=== PATIENT | female | born 1990 | race Caucasian/White ===

== ENCOUNTER 2018-12-30 14:43 | Emergency (ER) | payer SELFPAY ==
--- NOTE | 2018-12-30 15:40 | ER Document Report ---
ED Medical Screen (RME) - General Chief Complaint: Seizure Stated Complaint: SEIZURE Time Seen by Provider: 12/30/18 15:34 Mode of Arrival: Ambulatory Information source: Patient Notes: 28-year-old female presented to ED for complaint of a seizure last night. She states she has had 5 seizures in the last year and has not been to a primary doctor since she does not have insurance. She does have a history of seizures but the last seizure before this was about 3 years ago before the last 5. She states in [place] she was seen by her neurologist and had a EEGs and all the testing but they never did find anything. They did put her on medication and [place] but she did not take it because of the way it made her feel. She states she did not wet herself but her whole left side of her body was numb and she bit her tongue like she always does when she has a seizure. She has not had a menstrual cycle since June I have greeted and performed a rapid initial assessment of this patient. A comprehensive ED assessment and evaluation of the patient, analysis of test results and completion of medical decision making process will be conducted by an additional ED providers. Physical Exam - Vital signs Vitals: Temp Pulse Resp BP Pulse Ox 98.9 F 69 18 139/80 H 97 12/30/18 15:05 12/30/18 15:05 12/30/18 15:05 12/30/18 15:05 12/30/18 15:05 Course - Vital Signs Vital signs: Temp Pulse Resp BP Pulse Ox 98.9 F 69 18 139/80 H 97 12/30/18 15:05 12/30/18 15:05 12/30/18 15:05 12/30/18 15:05 12/30/18 15:05
[2018-12-30 16:50] LABS: ABSOLUTE BASOPHILS # (AUTO) 0.1 10^3/uL (0.0-0.2); ABSOLUTE EOSINOPHILS # (AUTO) 0.1 10^3/uL (0.0-0.6); ABSOLUTE LYMPHOCYTES (AUTO) 1.7 10^3/uL (0.5-4.7); ABSOLUTE MONOCYTES (AUTO) 0.6 10^3/uL (0.1-1.4); ABSOLUTE NEUT (AUTO) 5.4 10^3/uL (1.7-8.2); BASOPHILS % (AUTO) 0.7 % (0-2); EOSINOPHILS % (AUTO) 1.3 % (0-6); HEMATOCRIT 38.8 % (36.0-47.0); HEMOGLOBIN 13.3 g/dL (12.0-15.5); LYMPHOCYTES % (AUTO) 21.9 % (13-45); MEAN CORPUSCULAR HGB CONC 34.2 g/dL (32.0-36.0); MEAN CORPUSCULAR VOLUME 91 fl (80-97); PLATELET COUNT 264 10^3/uL (150-450); RED BLOOD COUNT 4.28 10^6/uL (3.72-5.28); RED CELL DISTRIBUTION WIDTH 12.9 % (11.5-14.0); SEGMENTED NEUTROPHILS % (AUTO) 68.1 % (42-78); TOTAL CELLS COUNTED % (AUTO) 100 %; WHITE BLOOD COUNT 7.9 10^3/uL (4.0-10.5)
[2018-12-30 16:58] LABS: APPEARANCE,URINE SLIGHTLY-CLOUDY; BILIRUBIN,URINE NEGATIVE (NEGATIVE); COLOR,URINE YELLOW; GLUCOSE, URINE NEGATIVE (NEGATIVE); KETONES,URINE NEGATIVE (NEGATIVE); PROTEIN,URINE NEGATIVE (NEGATIVE); URINE SPECIFIC GRAVITY 1.009; UROBILINOGEN,URINE NEGATIVE mg/dL (<2.0)
[2018-12-30 17:13] LABS: URINE AMPHETAMINES SCREEN NEGATIVE; URINE BARBITURATES SCREEN NEGATIVE; URINE BENZODIAZEPINES SCREEN NEGATIVE; URINE COCAINE SCREEN NEGATIVE; URINE MARIJUANA (THC) SCREEN NEGATIVE; URINE METHADONE SCREEN NEGATIVE; URINE PHENCYCLIDINE SCREEN NEGATIVE
[2018-12-30 17:16] LABS: ALBUMIN 4.3 g/dL (3.5-5.0); ALKALINE PHOSPHATASE 57 U/L (38-126); ANION GAP 11 (5-19); ASPARTATE AMINO TRANSFERASE 24 U/L (14-36); BILIRUBIN,DIRECT 0.1 mg/dL (0.0-0.4); BILIRUBIN,TOTAL 0.6 mg/dL (0.2-1.3); BLOOD UREA NITROGEN 11 mg/dL (7-20); CALCIUM 9.7 mg/dL (8.4-10.2); CARBON DIOXIDE 24 mmol/L (22-30); CHLORIDE 102 mmol/L (98-107); GLUCOSE 79 mg/dL (75-110); POTASSIUM 4.8 mmol/L (3.6-5.0); TOTAL PROTEIN 7.5 g/dL (6.3-8.2)
--- NOTE | 2018-12-30 19:42 | ER Document Report ---
ED General - General Chief Complaint: Probable Seizure Stated Complaint: SEIZURE Time Seen by Provider: 12/30/18 15:34 Mode of Arrival: Ambulatory Information source: Patient, [facility] Records Notes: 28-year-old female with a reported history of seizures presents after a seizure that occurred at home. This was an unwitnessed seizure and patient states that occurred in her sleep. When asked how she knew she had a fever she states that she bit her tongue and feels achy all over like her typical of seizure. She denies any recent illness, alcohol use, drug use. She is not currently on any medication for seizures. She states her last seizure was approximately 5 to 6 months ago. She states in [place] she underwent extensive EEG testing and they "found nothing". She has never been on any seizure medication. She states that her seizures only happen at night. She has no current complaints at this time except first that she feels tired. TRAVEL OUTSIDE OF THE [place] IN LAST 30 DAYS: No - HPI Onset: Just prior to arrival Onset/Duration: Sudden Quality of pain: No pain Severity: None Pain Level: Denies Associated symptoms: Body/muscle aches. denies: Chest pain, Diarrhea, Fever, Nausea, Vomiting, Shortness of breath Exacerbated by: Denies Relieved by: Denies Similar symptoms previously: Yes Recently seen / treated by doctor: No - Related Data Allergies/Adverse Reactions: No Known Allergies Allergy (Verified 12/30/18 16:19) Past Medical History - General Information source: Patient - Social History Smoking Status: Never Smoker Frequency of alcohol use: Occasional Drug Abuse: None Lives with: Family Family History: Reviewed & Not Pertinent Patient has suicidal ideation: No Patient has homicidal ideation: No Neurological Medical History: Reports: Hx Seizures Review of Systems - Review of Systems Notes: REVIEW OF SYSTEMS: CONSTITUTIONAL : Denies fever, chills, or sweats. Denies recent illness. Denies weight loss, recent hospitalizations. EENT: Denies visual changes, eye pain. Denies sore throat, oral lesions, difficulty swallowing. CARDIOVASCULAR: Denies chest pain. Denies palpitations. Denies lower extremity edema. RESPIRATORY: Denies cough. Denies shortness of breath, wheezing. GASTROINTESTINAL: Denies abdominal pain or distention. Denies nausea, vomiting, or diarrhea. Denies blood in vomitus, stools, or per rectum. Denies black, tarry stools. Denies constipation. GENITOURINARY: Denies difficulty urinating, painful urination, frequency, blood in urine, or vaginal discharge. MUSCULOSKELETAL: Denies back or neck pain or stiffness. Denies joint pain or swelling. SKIN: Denies rash, lesions or sores. HEMATOLOGIC : Denies easy bruising or bleeding. LYMPHATIC: Denies swollen glands. NEUROLOGICAL: Denies confusion or altered mental status. Denies loss of consciousness. Denies dizziness or lightheadedness. Denies headache. Denies weakness or paralysis. Denies problems difficulty with ambulation, slurred speech. Denies sensory loss, numbness, or tingling. + seizures. PSYCHIATRIC: Denies anxiety or stress. Denies depression, suicidal ideation, or homicidal ideation. Denies visual or auditory hallucinations. Physical Exam - Vital signs Vitals: Temp Pulse Resp BP Pulse Ox 98.9 F 69 18 139/80 H 97 12/30/18 15:05 12/30/18 15:05 12/30/18 15:05 12/30/18 15:05 12/30/18 15:05 - Notes Notes: PHYSICAL EXAMINATION: GENERAL: Well-appearing, well-nourished and in no acute distress. HEAD: Atraumatic, normocephalic. EYES: Pupils equal round and reactive to light, extraocular movements intact, conjunctiva are normal. ENT: Nares patent, oropharynx clear without exudates. Moist mucous membranes. NECK: Normal range of motion, supple without lymphadenopathy LUNGS: Breath sounds clear to auscultation bilaterally and equal. No wheezes rales or rhonchi. HEART: Regular rate and rhythm without murmurs ABDOMEN: Soft, nontender, nondistended abdomen. No guarding, no rebound. No masses appreciated. Female : deferred Musculoskeletal: Normal range of motion, no pitting or edema. No cyanosis. NEUROLOGICAL: Cranial nerves grossly intact. Normal speech, normal gait. Normal sensory, motor exams PSYCH: Normal mood, normal affect. SKIN: Warm, Dry, normal turgor, no rashes or lesions noted. Course - Re-evaluation Re-evalutation: Laboratory 12/30/18 12/30/18 12/30/18 16:30 16:30 16:30 WBC 7.9 RBC 4.28 Hgb 13.3 Hct 38.8 MCV 91 MCH 31.0 MCHC 34.2 RDW 12.9 Plt Count 264 Lymph % (Auto) 21.9 [place] % (Auto) 8.0 Eos % (Auto) 1.3 Baso % (Auto) 0.7 Absolute Neuts (auto) 5.4 Absolute Lymphs (auto) 1.7 Absolute Monos (auto) 0.6 Absolute Eos (auto) 0.1 Absolute Basos (auto) 0.1 Seg Neutrophils % 68.1 Sodium 136.9 L Potassium 4.8 Chloride 102 Carbon Dioxide 24 Anion Gap 11 BUN 11 Creatinine 0.76 Est GFR ( Amer) > 60 Est GFR (MDRD) Non-Af > 60 Glucose 79 Calcium 9.7 Total Bilirubin 0.6 Direct Bilirubin 0.1 Neonat Total Bilirubin Not Reportable Neonat Direct Bilirubin Not Reportable Neonat Indirect Bili Not Reportable AST 24 ALT 21 Alkaline Phosphatase 57 Total Protein 7.5 Albumin 4.3 Serum HCG, Qual NEGATIVE Urine Color Urine Appearance Urine pH Ur Specific [place] Urine Protein Urine Glucose (UA) Urine Ketones Urine Blood Urine Nitrite (Reflex) Urine Bilirubin Urine Urobilinogen Leukocyte Esterase Rfl Urine RBC (Auto) Urine Bacteria (Auto) Urine WBC (Reflex) Squamous Epi Cells Auto Urine Mucus (Auto) Urine Ascorbic Acid Urine Opiates Screen Urine Methadone Screen Ur Barbiturates Screen Ur Phencyclidine Scrn Ur Amphetamines Screen U Benzodiazepines Scrn Urine Cocaine Screen U Marijuana (THC) Screen 12/30/18 12/30/18 16:30 16:30 WBC RBC Hgb Hct MCV MCH MCHC RDW Plt Count Lymph % (Auto) [place] % (Auto) Eos % (Auto) Baso % (Auto) Absolute Neuts (auto) Absolute Lymphs (auto) Absolute Monos (auto) Absolute Eos (auto) Absolute Basos (auto) Seg Neutrophils % Sodium Potassium Chloride Carbon Dioxide Anion Gap BUN Creatinine Est GFR ( Amer) Est GFR (MDRD) Non-Af Glucose Calcium Total Bilirubin Direct Bilirubin Neonat Total Bilirubin Neonat Direct Bilirubin Neonat Indirect Bili AST ALT Alkaline Phosphatase Total Protein Albumin Serum HCG, Qual Urine Color YELLOW Urine Appearance SLIGHTLY-CLOUDY Urine pH 5.0 Ur Specific [place] 1.009 Urine Protein NEGATIVE Urine Glucose (UA) NEGATIVE Urine Ketones NEGATIVE Urine Blood NEGATIVE Urine Nitrite (Reflex) NEGATIVE Urine Bilirubin NEGATIVE Urine Urobilinogen NEGATIVE Leukocyte Esterase Rfl NEGATIVE Urine RBC (Auto) 0 Urine Bacteria (Auto) 1+ Urine WBC (Reflex) 2 Squamous Epi Cells Auto <1 Urine Mucus (Auto) RARE Urine Ascorbic Acid NEGATIVE Urine Opiates Screen NEGATIVE Urine Methadone Screen NEGATIVE Ur Barbiturates Screen NEGATIVE Ur Phencyclidine Scrn NEGATIVE Ur Amphetamines Screen NEGATIVE U Benzodiazepines Scrn NEGATIVE Urine Cocaine Screen NEGATIVE U Marijuana (THC) Screen NEGATIVE Temp Pulse Resp BP Pulse Ox 98.9 F 69 18 139/80 H 97 12/30/18 15:05 12/30/18 15:05 12/30/18 15:05 12/30/18 15:05 12/30/18 15:05 12/30/18 19:40 Presentation of well-appearing patient after having a seizure. Patient has a known history of seizures. No obvious trigger for today's episode. The patient has returned to baseline without intervention. No focal neurologic deficits. No infectious symptoms, vital sign abnormalities, or evidence of trauma. No indication imaging based on reassuring evaluation and known history of seizures. The patient will be discharged home with recommendations for close follow-up with primary care as well as their neurologist. Return precautions have been reviewed and patient has verbalized understanding. Patient was evaluated and treated as appropriate for the patient's presenting symptoms and complaint, with consideration of any critical or life threatening conditions that may be associated with their obtained history and exam as noted above. All results were discussed with patient and a friend who is at the bedside.. Patient provided the opportunity to ask questions, and express concerns. Patient was educated on treatments based on their presumed diagnosis as noted above. At this time we will discharge the patient with return prec autions and follow-up recommendations. Verbal discharge instructions given a the bedside. Medication warnings reviewed. Patient is in agreement with this plan and has verbalized understanding of return precautions. After careful consideration I feel that that patient can be safely discharged from the emergency department, they were advised to followup with a primary care physician in 2-3 days. Dictation on this chart was performed using voice recognition software and may result in unintended grammatical, spelling, syntax or errors. - Vital Signs Vital signs: Temp Pulse Resp BP Pulse Ox 98.9 F 69 18 139/80 H 97 12/30/18 15:05 12/30/18 15:05 12/30/18 15:05 12/30/18 15:05 12/30/18 15:05 - Laboratory Result Diagrams: 12/30/18 16:30 10/20/19 16:30 Laboratory results interpreted by me: 12/30/18 16:30 Sodium 136.9 L Discharge - Discharge Clinical Impression: Seizure Condition: Good Disposition: HOME, SELF-CARE Instructions: Seizure, Known Epileptic (OM) Additional Instructions: Today you had a seizure. It is very important that you do not engage in any a ctivities that could result in severe injury should you have a seizure. Specifically, do not drive a vehicle, go into a body of water, take a bath, climb ladders, or operate any heavy machinery until you have been cleared by your neurologist. Please return to the ED immediately if you have multiple seizures close together, develop a severe headache, weakness, numbness, difficulty speaking, have a seizure in which you do not return to normal within 1 hour of the seizure, or have any other symptoms that are concerning to you. Forms: Elevated Blood Pressure [facility]: [facility] [NO [facility]AL MD] - Follow up in 3-5 days
[2018-12-30 20:12] VITALS: BP 132/76
== END 2018-12-30 20:11 | disposition home or self-care (01) ==
LOC: ER 14:43
DX: G40.909 Epilepsy, unspecified, not intractable, without status epilepticus (principal); M79.10 Myalgia, unspecified site
CPT/HCPCS: 36415; 80053; 80307; 81001; 84703; 85025; 99284

== ENCOUNTER → 2019-10-02 | Outpatient (CLI) | payer OTHER ==
--- NOTE | 2019-10-02 09:41 | RADIOLOGY REPORT (SQ) ---
EXAM DESCRIPTION: U/S ABDOMEN LIMITED W/O DOP IMAGES COMPLETED DATE/TIME: 10/02/2019 9:22 am REASON FOR STUDY: RUQ PAIN R10.11 RIGHT UPPER QUADRANT PAIN COMPARISON: None. TECHNIQUE: Dynamic and static grayscale images acquired of the abdomen and recorded on PACS. Additio nal selected color Doppler and spectral images recorded. LIMITATIONS: None. FINDINGS: PANCREAS: No masses. Visualized pancreatic duct normal caliber. LIVER: No masses. Echotexture normal. LIVER VASCULATURE: Normal directional flow of the main portal vein and hepatic veins. GALLBLADDER: Gallstones and sludge. No wall thickening. ULTRASOUND-DETECTED SMALLS'S SIGN: Positive. INTRAHEPATIC DUCTS AND COMMON DUCT: CBD and intrahepatic ducts normal caliber. No filling defects. AORTA: No aneurysm. RIGHT KIDNEY: Normal size. Normal echogenicity. No solid or suspicious masses. No hydronephrosis. No calcifications. PERITONEAL AND RIGHT PLEURAL SPACE: No ascites or effusions. OTHER: No other significant findings. IMPRESSION: Gallstones and sludge. Positive sonographic Smalls's sign. TECHNICAL DOCUMENTATION: JOB ID: [id number] [employer]- All Rights Reserved Reading location - IP/workstation name: [email or web address]
== END ==
LOC: RAD 08:15
PROVIDERS: ATTEND Physician Assistant
DX: K80.80 Other cholelithiasis without obstruction (principal); R10.11 Right upper quadrant pain
CPT/HCPCS: 76705